=== PATIENT | male | born 1980 | race Caucasian/White ===

== ENCOUNTER 2022-04-17 11:41 | Day surgery (SDC) | payer OTHER ==
[~2022-04-17] VITALS: Ht 175.3 cm; Wt 175.0 kg
[~2022-04-17 11:41] MED LIST: ACET-66 PO; AZEL137S8 NASAL; CITA-144 PO; FAMO20TA8 PO; FLUT16H NASAL; GABA-1181 PO; METF-1211 PO; RISP0.5T39 PO; SODIUM CHLORIDE 0.9% 1,000 ML ONE
[2022-04-17] MEDS ORDERED: SODIUM CHLORIDE 0.9% 1,000 ML IV ONE (12:00)
[2022-04-17 12:20] LABS: COVID AG,FIA SOURCE NASAL SWAB
[2022-04-17] MEDS ORDERED: MIDAZOLAM HCL 2 MG/2 ML VIAL ONE ×3 (12:42→12:46)
[2022-04-17] MEDS ORDERED: FentaNYL CITRATE PF 100 MCG/2 ML VIAL ONE ×2 (12:42→12:43)
[2022-04-17 13:01] LABS: GLUCOMETER DEV NAME(LOC) SDS.; GLUCOSE,POINT OF CARE 137 MG/DL (70-110)
== END 2022-04-17 14:20 | disposition home or self-care (01) ==
LOC: SURGERY 11:41
PROVIDERS: ATTEND Internal Medicine Gastroenterology
DX: K29.51 Unspecified chronic gastritis with bleeding (principal); E11.9 Type 2 diabetes mellitus without complications; E66.9 Obesity, unspecified; Z20.822 Contact with and (suspected) exposure to COVID-19; Z68.43 Body mass index [BMI] 50.0-59.9, adult; Z79.84 Long term (current) use of oral hypoglycemic drugs; Z79.891 Long term (current) use of opiate analgesic; Z79.899 Other long term (current) drug therapy; Z91.013 Allergy to seafood
CPT/HCPCS: 43239; 87426; 88305; 82962; 88312; 99152; C1769; J3010; J2250; J7030; C9803

== ENCOUNTER 2022-05-01 09:51 | Day surgery (SDC) | payer OTHER ==
[~2022-05-01] VITALS: Ht 172.7 cm; Wt 173.3 kg
[~2022-05-01 09:51] MED LIST changes: -SODIUM CHLORIDE 0.9% 1,000 ML ONE
[2022-05-01 10:06] LABS: COVID AG,FIA SOURCE NASAL SWAB
[2022-05-01 10:40] LABS: GLUCOMETER DEV NAME(LOC) SDS.; GLUCOSE,POINT OF CARE 164 MG/DL (70-110)
[2022-05-01] MEDS ORDERED: MIDAZOLAM HCL 2 MG/2 ML VIAL ONE (11:45)
[2022-05-01] MEDS ORDERED: FentaNYL CITRATE PF 100 MCG/2 ML VIAL ONE (11:45)
[2022-05-01] MEDS ORDERED: SODIUM CHLORIDE 0.9% 1,000 ML IV ONE (12:00)
== END 2022-05-01 14:55 | disposition home or self-care (01) ==
LOC: SURGERY 09:51
PROVIDERS: ATTEND Internal Medicine Gastroenterology
DX: K64.0 First degree hemorrhoids (principal); Z79.899 Other long term (current) drug therapy; Z20.822 Contact with and (suspected) exposure to COVID-19; Z91.013 Allergy to seafood; F32.9 Major depressive disorder, single episode, unspecified; E66.01 Morbid (severe) obesity due to excess calories; E11.9 Type 2 diabetes mellitus without complications; Z98.890 Other specified postprocedural states
CPT/HCPCS: 45378; 87426; 82962; C9803; J3010; J2250